=== PATIENT | female | born 1995 | race Hispanic/Latino ===

== ENCOUNTER 2016-06-06 11:19 | Emergency (ER) | payer OTHER ==
[~2016-06-06] VITALS: Ht 152.4 cm; Wt 85.0 kg
[~2016-06-06 11:19] MED LIST: AMOXICILLIN500 MG PO; FISH OIL1000 MG PO; MACROBID100 MG PO
[2016-06-06] MEDS ORDERED: FERROUS SULF325 M1 PO (11:34)
[2016-06-06] MEDS ORDERED: PRENATAL1 TA1 PO (11:37)
[2016-06-06 12:09] LABS: HEMATOCRIT 30.9 % (37.0-47.0); HEMOGLOBIN 10.5 g/dl (12.0-16.0); IMMATURE GRANULOCYTES 0.4 % (0.0-1.0); MEAN CORPUSCULAR HGB 27.9 pG CALC (26.0-32.0); NEUT# 7.44 thou/uL (2.00-7.15); RED BLOOD COUNT 3.77 mill/uL (4.20-5.60); RED CELL DISTRI WIDTH 14.6 % (11.5-15.5)
[2016-06-06 12:24] LABS: ALBUMIN 3.2 g/dL (3.2-5.0); ALKALINE PHOSPHATASE 92 u/l (38-126); ANION GAP 11 (6-22 (CALC)); BILIRUBIN, TOTAL 0.3 mg/dL (0.0-1.4); BUN 5 mg/dL (7-17); BUN/CREATININE RATIO 11 (12-20 (CALC)); CALCIUM 9.6 mg/dL (8.4-10.2); CARBON DIOXIDE 23 mmol/l (22-30); CHLORIDE 107 mmol/l (95-108); CREATININE 0.5 mg/dL (0.5-1.0); GFR > 60 ML/MIN (>=60 (CALC)); GFR FOR AFR.AMER. > 60 ML/MIN (>=60 (CALC)); GLUCOSE 83 mg/dL (65-105); POTASSIUM 3.7 mmol/l (3.5-5.1); SGOT/AST 15 u/l (14-36); SGPT/ALT 21 u/l (9-52); SODIUM 136 mmol/l (137-146); TOTAL PROTEIN 6.4 g/dL (6.3-8.2)
[2016-06-06 14:02] LABS: URINE BILIRUBIN - DIPSTICK NEGATIVE (NEGATIVE); URINE BLOOD DIPSTICK SMALL (NEGATIVE); URINE CLARITY SLIGHT CLOUDY; URINE COLOR YELLOW; URINE GLUCOSE - DIPSTICK NEGATIVE (NEGATIVE); URINE KETONE NEGATIVE (NEGATIVE); URINE LEUK ESTERASE NEGATIVE (NEGATIVE); URINE NITRITE - DIPSTICK NEGATIVE (Negative); URINE PROTEIN - DIPSTICK 100 mg/dL (NEG-TRACE); URINE RBC 0-2 RBC/hpf (0-5); URINE SPECIFIC GRAVITY 1.025; URINE UROBILINOGEN - DIPSTICK 0.2 E.U./dL (0.2)
[2016-06-06 14:03] LABS: BARBITURATES NEGATIVE (NEGATIVE); COCAINE NEGATIVE (NEGATIVE); METHADONE NEGATIVE (NEGATIVE); OXCYCODONE NEGATIVE (NEGATIVE); TETRAHYDROCANNABIONOL NEGATIVE (NEGATIVE); TRICYLIC ANTIDEPRESSANTS NEGATIVE (NEGATIVE); URINE BACTERIA FEW hpf; URINE EPITHELIAL CELLS MODERATE EPI/hpf (0-FEW); URINE WBC 0-2 WBC/hpf (0-5)
[2016-06-06 14:23] VITALS: BP 120/61
== END 2016-06-06 14:26 | disposition home or self-care (01) | DRG 781 ==
LOC: ED 11:19
PROVIDERS: Emergency Medicine
DX: O26.893 Other specified pregnancy related conditions, third trimester (principal); R42 Dizziness and giddiness; R53.1 Weakness; Z3A.00 Weeks of gestation of pregnancy not specified

== ENCOUNTER 2016-07-10 08:15 | Emergency (ER) | payer OTHER ==
[~2016-07-10] VITALS: Ht 154.9 cm; Wt 55.0 kg
[~2016-07-10 08:15] MED LIST changes: +FERROUS SULF325 M1 PO; +PRENATAL1 TA1 PO
[2016-07-10 08:51] VITALS: BP 117/73
[2016-07-10] MEDS ORDERED: AUGMENTIN875TAB PO (09:01)
[2016-07-10] MEDS ORDERED: PAIN RELIEF325 MG PO (09:01)
[2016-07-11] MEDS ORDERED: PROCARDIA10 MG PO (08:50)
[2016-07-11] MEDS ORDERED: AUGMENTIN500TAB PO (08:50)
== END 2016-07-10 09:15 | disposition home or self-care (01) | DRG 781 ==
LOC: ED 08:15
DX: O26.893 Other specified pregnancy related conditions, third trimester (principal); J02.9 Acute pharyngitis, unspecified; Z3A.35 35 weeks gestation of pregnancy

== ENCOUNTER 2016-07-10 22:15 | Observation (INO) | payer OTHER ==
[~2016-07-10] VITALS: Ht 154.9 cm; Wt 86.0 kg
[2016-07-10 22:10] VITALS: BP 113/80
[2016-07-10 22:15] VITALS: BP 113/80
[~2016-07-10 22:15] MED LIST changes: +AUGMENTIN875TAB PO; +PAIN RELIEF325 MG PO
[2016-07-10 22:28] LABS: URINE BILIRUBIN - DIPSTICK NEGATIVE (NEGATIVE); URINE BLOOD DIPSTICK LARGE (NEGATIVE); URINE CLARITY SLIGHT CLOUDY; URINE COLOR YELLOW; URINE GLUCOSE - DIPSTICK NEGATIVE (NEGATIVE); URINE KETONE NEGATIVE (NEGATIVE); URINE LEUK ESTERASE NEGATIVE (NEGATIVE); URINE NITRITE - DIPSTICK NEGATIVE (Negative); URINE PH 6.5 (4.5-8.0); URINE PROTEIN - DIPSTICK >=300 mg/dL (NEG-TRACE); URINE UROBILINOGEN - DIPSTICK 0.2 E.U./dL (0.2)
[2016-07-10 22:31] LABS: BARBITURATES NEGATIVE (NEGATIVE); COCAINE NEGATIVE (NEGATIVE); METHADONE NEGATIVE (NEGATIVE); TETRAHYDROCANNABIONOL NEGATIVE (NEGATIVE); TRICYLIC ANTIDEPRESSANTS NEGATIVE (NEGATIVE)
[2016-07-10 22:32] LABS: OXCYCODONE NEGATIVE (NEGATIVE)
[2016-07-10 22:35] LABS: URINE SQUAMOUS EPITHELIAL CELL MANY EPI/hpf (0-FEW)
[2016-07-10 23:00] VITALS: BP 133/78
[2016-07-11] VITALS: BP 114/63
[2016-07-11 04:00] VITALS: BP 109/63
[2016-07-11 04:23] LABS: HEMATOCRIT 37.6 % (37.0-47.0); HEMOGLOBIN 12.4 g/dl (12.0-16.0); IMMATURE GRANULOCYTES 0.5 % (0.0-1.0); MEAN CELL VOLUME 84.5 fL CALC (80.0-100.0); MEAN CORPUSCULAR HGB 27.9 pG CALC (26.0-32.0); NEUT# 13.01 thou/uL (2.00-7.15); RED BLOOD COUNT 4.45 mill/uL (4.20-5.60); RED CELL DISTRI WIDTH 14.9 % (11.5-15.5)
[2016-07-11 04:29] LABS: ALBUMIN 3.3 g/dL (3.2-5.0); ALKALINE PHOSPHATASE 114 u/l (38-126); ANION GAP 14 (6-22 (CALC)); BUN 4 mg/dL (7-17); BUN/CREATININE RATIO 8 (12-20 (CALC)); CALCIUM 10.1 mg/dL (8.4-10.2); CARBON DIOXIDE 19 mmol/l (22-30); CHLORIDE 104 mmol/l (95-108); CREATININE 0.6 mg/dL (0.5-1.0); GFR > 60 ML/MIN (>=60 (CALC)); GFR FOR AFR.AMER. > 60 ML/MIN (>=60 (CALC)); GLUCOSE 100 mg/dL (65-105); POTASSIUM 3.9 mmol/l (3.5-5.1); SGOT/AST 18 u/l (14-36); SGPT/ALT 20 u/l (9-52); SODIUM 133 mmol/l (137-146); TOTAL PROTEIN 6.4 g/dL (6.3-8.2)
[2016-07-11 07:00] VITALS: BP 111/59
[2016-07-11] MEDS ORDERED: PROCARDIA10 MG PO (08:50)
[2016-07-11] MEDS ORDERED: AUGMENTIN500TAB PO (08:50)
== END 2016-07-11 09:00 | disposition home or self-care (01) | DRG 780 ==
LOC: OBOP 22:15 → OB 22:15 → OBOP 22:59 → OB 23:00
DX: O47.03 False labor before 37 completed weeks of gestation, third trimester (principal); O98.813 Other maternal infectious and parasitic diseases complicating pregnancy, third trimester; J02.0 Streptococcal pharyngitis; Z3A.35 35 weeks gestation of pregnancy
CPT/HCPCS: G0378

== ENCOUNTER 2016-07-30 13:30 | Inpatient (IN) | payer OTHER ==
[~2016-07-30] VITALS: Ht 154.9 cm; Wt 89.4 kg
[2016-07-30] VITALS (10 sets, daily range): BP systolic 101–131; BP diastolic 59–96
[~2016-07-30 13:30] MED LIST changes: +AUGMENTIN500TAB PO; +KEFLEX500 MG PO; +PROCARDIA10 MG PO
[2016-07-30 13:58] LABS: URINE BILIRUBIN - DIPSTICK NEGATIVE (NEGATIVE); URINE BLOOD DIPSTICK SMALL (NEGATIVE); URINE COLOR YELLOW; URINE GLUCOSE - DIPSTICK NEGATIVE (NEGATIVE); URINE KETONE NEGATIVE (NEGATIVE); URINE LEUK ESTERASE NEGATIVE (NEGATIVE); URINE NITRITE - DIPSTICK NEGATIVE (Negative); URINE PH 7.5 (4.5-8.0); URINE PROTEIN - DIPSTICK 100 mg/dL (NEG-TRACE); URINE SPECIFIC GRAVITY 1.025; URINE UROBILINOGEN - DIPSTICK 0.2 E.U./dL (0.2)
[2016-07-30 14:00] LABS: BARBITURATES NEGATIVE (NEGATIVE); COCAINE NEGATIVE (NEGATIVE); METHADONE NEGATIVE (NEGATIVE); OXCYCODONE NEGATIVE (NEGATIVE); TETRAHYDROCANNABIONOL NEGATIVE (NEGATIVE); TRICYLIC ANTIDEPRESSANTS NEGATIVE (NEGATIVE)
[2016-07-30 14:02] LABS: URINE CLARITY HAZY
[2016-07-30 14:08] LABS: URINE SQUAMOUS EPITHELIAL CELL MODERATE EPI/hpf (0-FEW); URINE WBC 0-2 WBC/hpf (0-5)
[2016-07-30 21:16] LABS: HEMATOCRIT 36.3 % (37.0-47.0); HEMOGLOBIN 12.2 g/dl (12.0-16.0); MEAN CELL VOLUME 82.5 fL CALC (80.0-100.0); MEAN CORPUSCULAR HGB 27.7 pG CALC (26.0-32.0); MEAN CORPUSCULAR HGB CONC 33.6 g/L CALC (32.0-36.0); RED BLOOD COUNT 4.4 mill/uL (4.20-5.60); RED CELL DISTRI WIDTH 14.5 % (11.5-15.5)
[2016-07-30 21:30] LABS: ALBUMIN 3.2 g/dL (3.2-5.0); ALKALINE PHOSPHATASE 112 u/l (38-126); ANION GAP 11 (6-22 (CALC)); BILIRUBIN, TOTAL 0.3 mg/dL (0.0-1.4); BUN 9 mg/dL (7-17); BUN/CREATININE RATIO 17 (12-20 (CALC)); CARBON DIOXIDE 24 mmol/l (22-30); CHLORIDE 104 mmol/l (95-108); CREATININE 0.5 mg/dL (0.5-1.0); GFR > 60 ML/MIN (>=60 (CALC)); GFR FOR AFR.AMER. > 60 ML/MIN (>=60 (CALC)); GLUCOSE 81 mg/dL (65-105); POTASSIUM 4.3 mmol/l (3.5-5.1); SGOT/AST 15 u/l (14-36); SGPT/ALT 18 u/l (9-52); SODIUM 134 mmol/l (137-146)
[2016-07-31] VITALS (26 sets, daily range): BP systolic 101–139; BP diastolic 51–91
[2016-08-01 00:56] LABS: HEMOGLOBIN 10.6 g/dl (12.0-16.0); IMMATURE GRANULOCYTES 0.3 % (0.0-1.0); MEAN CORPUSCULAR HGB 27.8 pG CALC (26.0-32.0); MEAN CORPUSCULAR HGB CONC 33.1 g/L CALC (32.0-36.0); NEUT# 8.33 thou/uL (2.00-7.15); RED BLOOD COUNT 3.81 mill/uL (4.20-5.60)
[2016-08-01 02:20] VITALS: BP 121/71
[2016-08-01 05:58] VITALS: BP 120/84
[2016-08-01 08:40] VITALS: BP 130/81
[2016-08-01 15:00] VITALS: BP 128/78
[2016-08-01 19:30] VITALS: BP 130/92
[2016-08-02 04:05] VITALS: BP 133/87
[2016-08-02 04:07] VITALS: BP 133/87
[2016-08-02 07:15] VITALS: BP 132/87
[2016-08-02 17:35] VITALS: BP 124/86
[2016-08-02 19:15] VITALS: BP 120/78
[2016-08-03 03:20] VITALS: BP 136/77
[2016-08-03] MEDS ORDERED: NORCO1 TA2 PO (08:27)
[2016-08-03] MEDS ORDERED: IBUPROFEN600 MG PO (08:28)
== END 2016-08-03 11:45 | disposition home or self-care (01) | DRG 766 ==
LOC: OBOP 13:30 → EDSTATUS 13:32 → OB 13:50 → OBOP 13:50 → OB 19:35
PROC: 10D00Z1 Extraction of Products of Conception, Low, Open Approach (ICD-10-PCS; principal; 2016-07-31)
DX: O76 Abnormality in fetal heart rate and rhythm complicating labor and delivery (principal); O26.893 Other specified pregnancy related conditions, third trimester; O33.9 Maternal care for disproportion, unspecified; O62.0 Primary inadequate contractions; Z3A.38 38 weeks gestation of pregnancy; Z37.0 Single live birth
CPT/HCPCS: J2540; J2788

== ENCOUNTER 2017-09-04 11:33 | Emergency (ER) | payer SELFPAY ==
[~2017-09-04] VITALS: Ht 154.9 cm; Wt 90.0 kg
[~2017-09-04 11:33] MED LIST changes: +IBUPROFEN600 MG PO; +NORCO1 TA2 PO
[2017-09-04 12:32] LABS: URINE BILIRUBIN - DIPSTICK NEGATIVE (NEGATIVE); URINE BLOOD DIPSTICK SMALL (NEGATIVE); URINE CLARITY HAZY; URINE COLOR YELLOW; URINE GLUCOSE - DIPSTICK NEGATIVE (NEGATIVE); URINE KETONE NEGATIVE (NEGATIVE); URINE LEUK ESTERASE SMALL (NEGATIVE); URINE NITRITE - DIPSTICK NEGATIVE (Negative); URINE PROTEIN - DIPSTICK 100 mg/dL (NEG-TRACE); URINE UROBILINOGEN - DIPSTICK 0.2 E.U./dL (0.2)
[2017-09-04 12:33] LABS: IMMATURE GRANULOCYTES 0.2 % (0.0-1.0); MEAN CELL VOLUME 82.6 fL CALC (80.0-100.0); MEAN CORPUSCULAR HGB 27.1 pG CALC (26.0-32.0); MEAN CORPUSCULAR HGB CONC 32.8 g/L CALC (32.0-36.0); NEUT# 3.73 thou/uL (2.00-7.15); RED BLOOD COUNT 4.72 mill/uL (4.20-5.60); RED CELL DISTRI WIDTH 13.7 % (11.5-15.5); URINE BACTERIA MODERATE hpf; URINE EPITHELIAL CELLS MODERATE EPI/hpf (0-FEW)
[2017-09-04 12:34] LABS: HEMOGLOBIN 12.8 g/dl (12.0-16.0)
[2017-09-04 12:53] LABS: ALKALINE PHOSPHATASE 93 u/l (38-126); AMYLASE 38 u/l (30-110); ANION GAP 13 (6-22 (CALC)); BILIRUBIN, TOTAL 0.7 mg/dL (0.0-1.4); BUN 10 mg/dL (7-17); BUN/CREATININE RATIO 15 (12-20 (CALC)); CARBON DIOXIDE 24 mmol/l (22-30); CHLORIDE 105 mmol/l (95-108); CREATININE 0.7 mg/dL (0.5-1.0); GFR > 60 ML/MIN (>=60 (CALC)); GFR FOR AFR.AMER. > 60 ML/MIN (>=60 (CALC)); LIPASE 90 u/l (23-300); POTASSIUM 4.5 mmol/l (3.5-5.1); SGOT/AST 22 u/l (14-36); SGPT/ALT 38 u/l (9-52); SODIUM 137 mmol/l (137-146); TOTAL PROTEIN 6.8 g/dL (6.3-8.2)
[2017-09-04 13:00] LABS: ALBUMIN 3.9 g/dL (3.2-5.0)
[2017-09-04 13:05] LABS: MYOGLOBIN 105 ng/mL (0 - 62)
[2017-09-04] MEDS ORDERED: KEFLEX500 M1 PO (13:35)
[2017-09-04 13:45] VITALS: BP 109/73
== END 2017-09-04 13:45 | disposition home or self-care (01) | DRG 690 ==
LOC: ED 11:33
DX: N39.0 Urinary tract infection, site not specified (principal)

== ENCOUNTER 2018-03-03 11:51 | Emergency (ER) | payer SELFPAY ==
[~2018-03-03] VITALS: Ht 154.9 cm; Wt 79.5 kg
[~2018-03-03 11:51] MED LIST changes: +KEFLEX500 M1 PO
[2018-03-03 12:30] LABS: URINE BILIRUBIN - DIPSTICK NEGATIVE (NEGATIVE); URINE BLOOD DIPSTICK SMALL (NEGATIVE); URINE CLARITY SL CLOUDY; URINE COLOR YELLOW; URINE GLUCOSE - DIPSTICK NEGATIVE (NEGATIVE); URINE KETONE NEGATIVE (NEGATIVE); URINE LEUK ESTERASE NEGATIVE (Negative); URINE NITRITE - DIPSTICK NEGATIVE (Negative); URINE PH 7.5 (4.5-8.0); URINE PROTEIN - DIPSTICK 100 mg/dL (NEG-TRACE); URINE SPECIFIC GRAVITY 1.025
[2018-03-03 12:32] LABS: URINE SQUAMOUS EPITHELIAL CELL FEW EPI/hpf (0-FEW); URINE WBC 0-2 WBC/hpf (0-5)
[2018-03-03 12:33] LABS: URINE AMORPH SEDIMENT MODERATE hpf (NONE-FEW)
[2018-03-03 14:58] VITALS: BP 138/78
== END 2018-03-03 14:55 | disposition home or self-care (01) | DRG 951 ==
LOC: ED 11:51
PROVIDERS: Family Medicine
DX: Z32.01 Encounter for pregnancy test, result positive (principal); R10.2 Pelvic and perineal pain; R10.31 Right lower quadrant pain; R10.32 Left lower quadrant pain

== ENCOUNTER 2018-03-26 10:32 | Emergency (ER) | payer OTHER ==
[~2018-03-26] VITALS: Ht 154.9 cm; Wt 90.0 kg
[2018-03-26 11:35] LABS: HEMATOCRIT 39.2 % (37.0-47.0); HEMOGLOBIN 13.1 g/dl (12.0-16.0); IMMATURE GRANULOCYTES 0.3 % (0.0-5.0); MEAN CELL VOLUME 82.5 fL CALC (80.0-100.0); MEAN CORPUSCULAR HGB 27.6 pG CALC (26.0-32.0); MEAN CORPUSCULAR HGB CONC 33.4 g/L CALC (32.0-36.0); NEUT# 4.48 thou/uL (2.00-7.15); RED BLOOD COUNT 4.75 mill/uL (4.20-5.60); RED CELL DISTRI WIDTH 13.4 % (11.5-15.5)
[2018-03-26 11:37] LABS: URINE BILIRUBIN - DIPSTICK NEGATIVE (NEGATIVE); URINE BLOOD DIPSTICK SMALL (NEGATIVE); URINE COLOR YELLOW; URINE GLUCOSE - DIPSTICK NEGATIVE (NEGATIVE); URINE KETONE TRACE mg/dL (NEGATIVE); URINE LEUK ESTERASE NEGATIVE (NEGATIVE); URINE NITRITE - DIPSTICK NEGATIVE (Negative); URINE PH 6.5 (4.5-8.0); URINE PROTEIN - DIPSTICK 100 mg/dL (NEG-TRACE); URINE SPECIFIC GRAVITY 1.025; URINE UROBILINOGEN - DIPSTICK 0.2 E.U./dL (0.2)
[2018-03-26 11:44] LABS: URINE SQUAMOUS EPITHELIAL CELL FEW EPI/hpf (0-FEW)
[2018-03-26 11:45] LABS: URINE BACTERIA FEW hpf
[2018-03-26 11:54] LABS: ALBUMIN 3.9 g/dL (3.2-5.0); ALKALINE PHOSPHATASE 70 u/l (38-126); AMYLASE < 30 u/l (30-110); ANION GAP 13 (6-22 (CALC)); BILIRUBIN, TOTAL 0.6 mg/dL (0.0-1.4); BUN 10 mg/dL (7-17); BUN/CREATININE RATIO 18 (12-20 (CALC)); CARBON DIOXIDE 24 mmol/l (22-30); CHLORIDE 104 mmol/l (95-108); CREATININE 0.6 mg/dL (0.5-1.0); GFR > 60 ML/MIN (>=60 (CALC)); GFR FOR AFR.AMER. > 60 ML/MIN (>=60 (CALC)); LIPASE 87 u/l (23-300); POTASSIUM 3.9 mmol/l (3.5-5.1); SGOT/AST 12 u/l (14-36); SODIUM 137 mmol/l (137-146); TOTAL PROTEIN 6.6 g/dL (6.3-8.2)
[2018-03-26 12:49] LABS: BETA-HCG, QUANT(RESULT NUMBER) 99521 mIU/mL
[2018-03-26] MEDS ORDERED: CEPHALEXIN500 M1 PO (13:46)
[2018-03-26 13:54] VITALS: BP 138/79
== END 2018-03-26 14:00 | disposition home or self-care (01) ==
LOC: ED 10:32
PROVIDERS: Emergency Medicine
DX: O23.41 Unspecified infection of urinary tract in pregnancy, first trimester (principal); R10.33 Periumbilical pain; Z3A.01 Less than 8 weeks gestation of pregnancy

== ENCOUNTER 2018-04-12 10:33 | Emergency (ER) | payer OTHER ==
[~2018-04-12] VITALS: Ht 154.9 cm; Wt 100.0 kg
[~2018-04-12 10:33] MED LIST changes: +CEPHALEXIN500 M1 PO
[2018-04-12] MEDS ORDERED: ROBITUSSIN200 MG/10 PO (12:43)
[2018-04-12 12:46] VITALS: BP 136/86
== END 2018-04-12 12:46 | disposition home or self-care (01) ==
LOC: ED 10:33
DX: O26.891 Other specified pregnancy related conditions, first trimester (principal); R05 Cough; Z3A.09 9 weeks gestation of pregnancy

== ENCOUNTER 2018-05-11 10:44 | Emergency (ER) | payer OTHER ==
[~2018-05-11] VITALS: Ht 154.9 cm; Wt 87.0 kg
[~2018-05-11 10:44] MED LIST changes: +ROBITUSSIN200 MG/10 PO
[2018-05-11 11:17] LABS: HEMATOCRIT 39.7 % (37.0-47.0); HEMOGLOBIN 13.4 g/dl (12.0-16.0); IMMATURE GRANULOCYTES 0.4 % (0.0-5.0); MEAN CELL VOLUME 82.7 fL CALC (80.0-100.0); MEAN CORPUSCULAR HGB 27.9 pG CALC (26.0-32.0); MEAN CORPUSCULAR HGB CONC 33.8 g/L CALC (32.0-36.0); NEUT# 8.86 thou/uL (2.00-7.15); RED BLOOD COUNT 4.8 mill/uL (4.20-5.60); RED CELL DISTRI WIDTH 13.5 % (11.5-15.5)
[2018-05-11 11:33] LABS: ALBUMIN 3.7 g/dL (3.2-5.0); ALKALINE PHOSPHATASE 71 u/l (38-126); ANION GAP 15 (6-22 (CALC)); BILIRUBIN, TOTAL 0.5 mg/dL (0.0-1.4); BUN 8 mg/dL (7-17); BUN/CREATININE RATIO 18 (12-20 (CALC)); CARBON DIOXIDE 19 mmol/l (22-30); CHLORIDE 105 mmol/l (95-108); CREATININE 0.5 mg/dL (0.5-1.0); GFR > 60 ML/MIN (>=60 (CALC)); GFR FOR AFR.AMER. > 60 ML/MIN (>=60 (CALC)); LIPASE 81 u/l (23-300); POTASSIUM 4.1 mmol/l (3.5-5.1); SGOT/AST 12 u/l (14-36); SODIUM 136 mmol/l (137-146); TOTAL PROTEIN 6.6 g/dL (6.3-8.2)
[2018-05-11] MEDS ORDERED: PHENERGAN25 MG/TAB PO (12:23)
[2018-05-11 12:40] VITALS: BP 126/76
== END 2018-05-11 12:49 | disposition home or self-care (01) ==
LOC: ED 10:44
PROVIDERS: Family Medicine
DX: O99.612 Diseases of the digestive system complicating pregnancy, second trimester (principal); K52.9 Noninfective gastroenteritis and colitis, unspecified; Z3A.14 14 weeks gestation of pregnancy; R11.10 Vomiting, unspecified; R10.13 Epigastric pain

== ENCOUNTER 2018-05-22 20:35 | Emergency (ER) | payer OTHER ==
[~2018-05-22] VITALS: Ht 154.9 cm; Wt 82.6 kg
[~2018-05-22 20:35] MED LIST changes: +PHENERGAN25 MG/TAB PO
[2018-05-22 22:03] LABS: URINE BILIRUBIN - DIPSTICK NEGATIVE (NEGATIVE); URINE BLOOD DIPSTICK MODERATE (NEGATIVE); URINE COLOR YELLOW; URINE GLUCOSE - DIPSTICK NEGATIVE (NEGATIVE); URINE KETONE TRACE mg/dL (NEGATIVE); URINE LEUK ESTERASE NEGATIVE (NEGATIVE); URINE NITRITE - DIPSTICK NEGATIVE (Negative); URINE PROTEIN - DIPSTICK 100 mg/dL (NEG-TRACE); URINE SPECIFIC GRAVITY >=1.030
[2018-05-22 22:04] LABS: HEMATOCRIT 34.6 % (37.0-47.0); HEMOGLOBIN 11.8 g/dl (12.0-16.0); IMMATURE GRANULOCYTES 0.5 % (0.0-5.0); MEAN CORPUSCULAR HGB CONC 34.1 g/L CALC (32.0-36.0); NEUT# 5.73 thou/uL (2.00-7.15); RED BLOOD COUNT 4.22 mill/uL (4.20-5.60); RED CELL DISTRI WIDTH 13.3 % (11.5-15.5)
[2018-05-22 22:13] LABS: BARBITURATES NEGATIVE (NEGATIVE); COCAINE NEGATIVE (NEGATIVE); METHADONE NEGATIVE (NEGATIVE); OXCYCODONE NEGATIVE (NEGATIVE); TETRAHYDROCANNABIONOL NEGATIVE (NEGATIVE); TRICYLIC ANTIDEPRESSANTS NEGATIVE (NEGATIVE)
[2018-05-22 22:14] LABS: ALBUMIN 3.5 g/dL (3.2-5.0); ALKALINE PHOSPHATASE 71 u/l (38-126); ANION GAP 14 (6-22 (CALC)); BILIRUBIN, TOTAL 0.4 mg/dL (0.0-1.4); BUN 9 mg/dL (7-17); BUN/CREATININE RATIO 19 (12-20 (CALC)); CARBON DIOXIDE 19 mmol/l (22-30); CHLORIDE 106 mmol/l (95-108); CREATININE 0.5 mg/dL (0.5-1.0); GFR > 60 ML/MIN (>=60 (CALC)); GFR FOR AFR.AMER. > 60 ML/MIN (>=60 (CALC)); POTASSIUM 3.8 mmol/l (3.5-5.1); SGOT/AST 14 u/l (14-36); SODIUM 136 mmol/l (137-146); TOTAL PROTEIN 6.2 g/dL (6.3-8.2)
[2018-05-22 22:15] LABS: URINE SQUAMOUS EPITHELIAL CELL FEW EPI/hpf (0-FEW)
[2018-05-23 00:50] VITALS: BP 112/62
== END 2018-05-23 00:51 | disposition home or self-care (01) ==
LOC: ED 20:35
PROVIDERS: Emergency Medicine
DX: O26.892 Other specified pregnancy related conditions, second trimester (principal); M54.5 Low back pain; R10.30 Lower abdominal pain, unspecified; Z3A.15 15 weeks gestation of pregnancy

== ENCOUNTER 2018-08-03 20:13 | Emergency (ER) | payer OTHER ==
[~2018-08-03] VITALS: Ht 154.9 cm; Wt 79.0 kg
[2018-08-03 21:15] LABS: HEMATOCRIT 34.7 % (37.0-47.0); HEMOGLOBIN 11.4 g/dl (12.0-16.0); IMMATURE GRANULOCYTES 0.6 % (0.0-5.0); MEAN CELL VOLUME 84.4 fL CALC (80.0-100.0); MEAN CORPUSCULAR HGB 27.7 pG CALC (26.0-32.0); MEAN CORPUSCULAR HGB CONC 32.9 g/L CALC (32.0-36.0); NEUT# 4.8 thou/uL (2.00-7.15); RED BLOOD COUNT 4.11 mill/uL (4.20-5.60); RED CELL DISTRI WIDTH 14.3 % (11.5-15.5); URINE BILIRUBIN - DIPSTICK NEGATIVE (NEGATIVE); URINE BLOOD DIPSTICK SMALL (NEGATIVE); URINE COLOR YELLOW; URINE GLUCOSE - DIPSTICK NEGATIVE (NEGATIVE); URINE KETONE NEGATIVE (NEGATIVE); URINE LEUK ESTERASE NEGATIVE (NEGATIVE); URINE NITRITE - DIPSTICK NEGATIVE (Negative); URINE PH 6.5 (4.5-8.0); URINE PROTEIN - DIPSTICK >=300 mg/dL (NEG-TRACE); URINE SPECIFIC GRAVITY 1.025; URINE UROBILINOGEN - DIPSTICK 0.2 E.U./dL (0.2)
[2018-08-03 21:31] LABS: ALBUMIN 3.3 g/dL (3.2-5.0); ALKALINE PHOSPHATASE 92 u/l (38-126); AMYLASE 43 u/l (30-110); ANION GAP 14 (6-22 (CALC)); BILIRUBIN, TOTAL 0.4 mg/dL (0.0-1.4); BUN 7 mg/dL (7-17); BUN/CREATININE RATIO 13 (12-20 (CALC)); CARBON DIOXIDE 22 mmol/l (22-30); CHLORIDE 104 mmol/l (95-108); CREATININE 0.6 mg/dL (0.5-1.0); GFR > 60 ML/MIN (>=60 (CALC)); GFR FOR AFR.AMER. > 60 ML/MIN (>=60 (CALC)); LIPASE 178 u/l (23-300); POTASSIUM 4.3 mmol/l (3.5-5.1); SGOT/AST 11 u/l (14-36); SODIUM 136 mmol/l (137-146); TOTAL PROTEIN 6.1 g/dL (6.3-8.2)
[2018-08-03 21:46] LABS: URINE WBC 0-2 WBC/hpf (0-5)
[2018-08-03 21:47] LABS: URINE SQUAMOUS EPITHELIAL CELL MODERATE EPI/hpf (0-FEW)
[2018-08-03] MEDS ORDERED: CEPHALEXIN500 M1 PO (22:02)
[2018-08-03 22:13] VITALS: BP 120/71
== END 2018-08-03 22:23 | disposition home or self-care (01) ==
LOC: ED 20:13
PROVIDERS: Emergency Medicine
DX: O23.12 Infections of bladder in pregnancy, second trimester (principal); N30.90 Cystitis, unspecified without hematuria; Z3A.26 26 weeks gestation of pregnancy; R10.33 Periumbilical pain; R30.0 Dysuria

== ENCOUNTER 2018-09-12 20:17 | Emergency (ER) | payer OTHER ==
[~2018-09-12] VITALS: Ht 154.9 cm; Wt 86.0 kg
[2018-09-12] MEDS ORDERED: COLACE100 MG PO (20:57)
[2018-09-12 21:28] VITALS: BP 112/74
== END 2018-09-12 21:27 | disposition home or self-care (01) ==
LOC: ED 20:17
DX: O99.613 Diseases of the digestive system complicating pregnancy, third trimester (principal); K59.00 Constipation, unspecified; Z3A.31 31 weeks gestation of pregnancy

== ENCOUNTER 2020-04-09 08:41 | Emergency (ER) | payer OTHER ==
[~2020-04-09] VITALS: Ht 154.9 cm; Wt 100.0 kg
[~2020-04-09 08:41] MED LIST changes: +COLACE100 MG PO
[2020-04-09 10:59] VITALS: BP 122/65
== END 2020-04-09 10:59 | disposition home or self-care (01) ==
LOC: ED 08:41
DX: M25.561 Pain in right knee (principal); G56.93 Unspecified mononeuropathy of bilateral upper limbs

== ENCOUNTER 2020-05-03 14:18 | Emergency (ER) | payer OTHER ==
[~2020-05-03] VITALS: Ht 154.9 cm; Wt 131.0 kg
[2020-05-03 16:48] LABS: URINE BILIRUBIN - DIPSTICK NEGATIVE (NEGATIVE); URINE BLOOD DIPSTICK MODERATE (NEGATIVE); URINE COLOR YELLOW; URINE GLUCOSE - DIPSTICK NEGATIVE (NEGATIVE); URINE KETONE NEGATIVE (NEGATIVE); URINE LEUK ESTERASE NEGATIVE (NEGATIVE); URINE NITRITE - DIPSTICK NEGATIVE (Negative); URINE PROTEIN - DIPSTICK 100 mg/dL (NEG-TRACE); URINE SPECIFIC GRAVITY 1.025; URINE UROBILINOGEN - DIPSTICK 0.2 E.U./dL (0.2)
[2020-05-03 16:49] LABS: URINE SQUAMOUS EPITHELIAL CELL FEW EPI/hpf (0-FEW); URINE WBC 0-2 WBC/hpf (0-5)
[2020-05-03 17:20] VITALS: BP 128/72
[2020-05-03 17:25] LABS: HEMATOCRIT 37.8 % (37.0-47.0); HEMOGLOBIN 12.2 g/dl (12.0-16.0); IMMATURE GRANULOCYTES 0.4 % (0.0-5.0); MEAN CELL VOLUME 85.7 fL CALC (80.0-100.0); MEAN CORPUSCULAR HGB 27.7 pG CALC (26.0-32.0); MEAN CORPUSCULAR HGB CONC 32.3 g/dL CAL (32.0-36.0); NEUT# 5.02 thou/uL (2.00-7.15); RED BLOOD COUNT 4.41 mill/uL (4.20-5.60); RED CELL DISTRI WIDTH 13.1 % (11.5-15.5)
[2020-05-03 17:49] LABS: ALKALINE PHOSPHATASE 77 u/l (38-126); BUN 11 mg/dL (7-17); BUN/CREATININE RATIO 15 (12-20 (CALC)); CHLORIDE 100 mmol/l (95-108); CREATININE 0.7 mg/dL (0.5-1.0); GFR > 60 ML/MIN (>=60 (CALC)); GFR FOR AFR.AMER. > 60 ML/MIN (>=60 (CALC)); POTASSIUM 3.6 mmol/l (3.5-5.1); SODIUM 135 mmol/l (137-146)
[2020-05-03 17:50] LABS: ALBUMIN 4.1 g/dL (3.2-5.0); ANION GAP 10 (6-22 (CALC)); BILIRUBIN, TOTAL 0.8 mg/dL (0.0-1.4); CARBON DIOXIDE 29 mmol/l (22-30); SGOT/AST 21 u/l (14-36)
[2020-05-03 17:55] LABS: MYOGLOBIN 52 ng/mL (0 - 62)
== END 2020-05-03 17:20 | disposition left against medical advice (07) ==
LOC: ED 14:18
PROVIDERS: Emergency Medicine
DX: R42 Dizziness and giddiness (principal); Z91.19 Patient's noncompliance with other medical treatment and regimen

== ENCOUNTER 2021-10-10 18:57 | Emergency (ER) | payer MEDICAID ==
[~2021-10-10] VITALS: Ht 154.9 cm; Wt 86.4 kg
[2021-10-10 19:15] VITALS: BP 134/91
[2021-10-10 19:30] VITALS: BP 149/94
[2021-10-10 19:43] LABS: HEMATOCRIT 41.1 % (37.0-47.0); HEMOGLOBIN 14.1 g/dl (12.0-16.0); IMMATURE GRANULOCYTES 0.1 % (0.0-5.0); MEAN CELL VOLUME 82.4 fL CALC (80.0-100.0); MEAN CORPUSCULAR HGB 28.3 pG CALC (26.0-32.0); MEAN CORPUSCULAR HGB CONC 34.3 g/dL CAL (32.0-36.0); NEUT# 6.72 thou/uL (2.00-7.15); RED BLOOD COUNT 4.99 mill/uL (4.20-5.60); RED CELL DISTRI WIDTH 12.9 % (11.5-15.5)
[2021-10-10 19:45] VITALS: BP 144/76
[2021-10-10 20:00] VITALS: BP 126/72
[2021-10-10 20:16] VITALS: BP 111/44
[2021-10-10] MEDS ORDERED: TAM75CAP PO (20:16)
[2021-10-10] MEDS ORDERED: AMOXICILLIN500 M2 PO (20:16)
[2021-10-10 20:28] VITALS: BP 111/44
== END 2021-10-10 20:45 | disposition home or self-care (01) ==
LOC: ED 18:57
PROVIDERS: Family Medicine
DX: J10.1 Influenza due to other identified influenza virus with other respiratory manifestations (principal); J02.0 Streptococcal pharyngitis; Z20.822 Contact with and (suspected) exposure to COVID-19

== ENCOUNTER 2021-12-26 19:30 | Emergency (ER) | payer MEDICAID ==
[~2021-12-26] VITALS: Ht 154.9 cm; Wt 90.0 kg
[~2021-12-26 19:30] MED LIST changes: +AMOXICILLIN500 M2 PO; +TAM75CAP PO
[2021-12-26 20:09] VITALS: BP 127/78
[2021-12-26 20:36] LABS: URINE BILIRUBIN - DIPSTICK NEGATIVE (NEGATIVE); URINE BLOOD DIPSTICK MODERATE (NEGATIVE); URINE COLOR YELLOW; URINE GLUCOSE - DIPSTICK NEGATIVE (NEGATIVE); URINE KETONE NEGATIVE (NEGATIVE); URINE LEUK ESTERASE NEGATIVE (NEGATIVE); URINE PROTEIN - DIPSTICK >=300 mg/dL (NEG-TRACE); URINE SPECIFIC GRAVITY >=1.030; URINE UROBILINOGEN - DIPSTICK 0.2 E.U./dL (0.2)
[2021-12-26 20:37] LABS: URINE NITRITE - DIPSTICK POSITIVE (Negative)
[2021-12-26 20:44] LABS: URINE BACTERIA MODERATE hpf; URINE SQUAMOUS EPITHELIAL CELL FEW EPI/hpf (0-FEW)
[2021-12-26] MEDS ORDERED: MONISTAT1 VA (22:42)
[2021-12-26] MEDS ORDERED: CIPROFLOXACN500 MG PO (22:42)
[2021-12-26 22:50] VITALS: BP 127/78
[2021-12-26] MEDS ORDERED: METRONIDAZOLE500 MG PO (22:54)
== END 2021-12-26 22:50 | disposition home or self-care (01) ==
LOC: ED 19:30
PROVIDERS: Emergency Medicine
DX: N76.0 Acute vaginitis (principal); N39.0 Urinary tract infection, site not specified; B96.20 Unspecified Escherichia coli [E. coli] as the cause of diseases classified elsewhere; J45.909 Unspecified asthma, uncomplicated

== ENCOUNTER 2022-11-04 10:11 | Emergency (ER) | payer SELFPAY ==
[~2022-11-04] VITALS: Ht 154.9 cm; Wt 88.0 kg
[~2022-11-04 10:11] MED LIST changes: +CIPROFLOXACN500 MG PO; +METRONIDAZOLE500 MG PO; +MONISTAT1 VA
[2022-11-04 10:44] VITALS: BP 145/84
[2022-11-04 10:45] VITALS: BP 151/88
[2022-11-04 11:00] VITALS: BP 150/92
[2022-11-04 11:15] VITALS: BP 143/85
[2022-11-04 11:30] VITALS: BP 128/77
[2022-11-04] MEDS ORDERED: VENTOLIN HFA108 MCG INHW/SPAC (13:28)
[2022-11-04] MEDS ORDERED: TAM75CAP PO (13:28)
[2022-11-04 13:38] VITALS: BP 128/77
== END 2022-11-04 13:50 | disposition home or self-care (01) | DRG 195 ==
LOC: ED 10:11
DX: J10.1 Influenza due to other identified influenza virus with other respiratory manifestations (principal); J45.909 Unspecified asthma, uncomplicated

== ENCOUNTER 2023-03-12 06:05 | Emergency (ER) | payer SELFPAY ==
[~2023-03-12] VITALS: Ht 154.9 cm; Wt 100.0 kg
[~2023-03-12 06:05] MED LIST changes: +VENTOLIN HFA108 MCG INHW/SPAC
[2023-03-12 06:27] VITALS: BP 136/94
[2023-03-12 07:00] VITALS: BP 127/87
[2023-03-12] MEDS ORDERED: ZITHROMAX500 MG PO (07:46)
[2023-03-12] MEDS ORDERED: IBUPROFEN600 MG PO (07:46)
[2023-03-12] MEDS ORDERED: MEDDOSEPAK PO (07:46)
[2023-03-12 07:50] VITALS: BP 127/87
== END 2023-03-12 08:00 | disposition home or self-care (01) | DRG 179 ==
LOC: ED 06:05
DX: U07.1 COVID-19 (principal); H66.91 Otitis media, unspecified, right ear; J45.909 Unspecified asthma, uncomplicated

== ENCOUNTER 2023-04-29 05:55 | Emergency (ER) | payer OTHER ==
[~2023-04-29] VITALS: Ht 154.9 cm; Wt 90.0 kg
[~2023-04-29 05:55] MED LIST changes: +MEDDOSEPAK PO; +ZITHROMAX500 MG PO
[2023-04-29 07:16] VITALS: BP 141/92
[2023-04-29 07:26] VITALS: BP 141/92
== END 2023-04-29 07:29 | disposition home or self-care (01) | DRG 563 ==
LOC: ED 05:55
DX: S93.401A Sprain of unspecified ligament of right ankle, initial encounter (principal); X50.0XXA Overexertion from strenuous movement or load, initial encounter

== ENCOUNTER 2023-10-17 17:42 | Emergency (ER) | payer SELFPAY ==
[~2023-10-17] VITALS: Ht 154.9 cm; Wt 93.4 kg
[~2023-10-17 17:42] MED LIST changes: +AMOX/K CLAV875 M1 PO
[2023-10-17 17:47] VITALS: BP 142/99
[2023-10-17 18:01] VITALS: BP 132/83
[2023-10-17 18:16] VITALS: BP 135/80
== END 2023-10-17 18:18 | disposition home or self-care (01) | DRG 607 ==
LOC: ED 17:42
DX: L84 Corns and callosities (principal)